=== PATIENT | male | born 1965 | race Caucasian/White ===

== ENCOUNTER 2017-07-17 09:55 | Outpatient (RCR) | payer BC, SELFPAY ==
--- NOTE | 2017-07-17 11:11 | HP.OTEVAL_ITS ---
Patient's Visit Information LYNDSEY FERRER is a 52 year old M, referred to Occupational Therapy by Robi Connolly MD, with a diagnosis of left IF sprain of metacarpophalangeal joint. Date of Evaluation: 07/17/17 Occupational Therapist: Francheska Hidalgo, BRENDANR/Lamar, CHT - Subjective Subjective: pt states in the end of April while golfing he hurt his left IF with his glof swing -pt states he again injured it in mid May. He attempted to use a store bought brace for it- and has stopped using the brace but contines to have pain. PT states pain is with use of bilatera hand tasks ie- tying shoes, pulling pants on etc. - Pain left IF 1 Pain Intensity Range: 0, 1, 5 - ROM ROM Comments: pt demo ROM WNL of left IF - Strength Lateral Pinch: right 16# left 2# Tripod Pinch: right 12# left unable Strength Comments: pt demo pain with lateral end range of motion at MCP of IF. and pain eith resistive pinch- - Sensation Sensation Comments: denies - Hand/Wrist Evaluation Total Score of Pain & Functional Sections: 62 - Goals Goal:: pt will demo a increase in lateral and tripod pinch strength by 5# to increase pts ind. with BADLS and IADLS by d/c Goal:: Pt will report no pain greater than 1/10 with use of bilateral hands with BADLS and IADLS by d/c - Rehabilitation General Assessment: pt reports pain with resistive use of left IF while in tripod or lateral pinch positions- pt denies change in sensation. pt demo with full functional ROM of left hand and IF. pain is limiting factor at this time and limits pts use of bilateral hand for BADLs and IADLS . Rehabilitation Potential: Good - Anticipated Interventions Anticipated Interventions: Strengthening, Modalities, Orthoses, Joint Protection /Energy Conservation, Ergonomic Education, Fine Motor Coord/Smith - Visit Plan Frequency: Monthly Duration: 2 Months General Plan: pt was instructed pt in HEP of tape of left lateral side of MCP of IF and tape to MF to prevent ulnar dev. of IF with use. pt was instructed if finger pain did not decrease pt will return to therapy. TEXT: Thank you for the opportunity to evaluate your patient. For Medicare and Medicare HMO plans, please review the plan of care and approve it. It will need to be FAXED BACK to us at [phone] for Medicare purposes. Please let me know if there are questions or concerns regarding this plan of care. Physician Signature: Date:
--- NOTE | 2017-10-14 15:36 | HP.OTDCNRP_ITS ---
HP - Discharge Summary - Patient Information LYNDSEY FERRER was seen in my office for initial evaluation on 07/17/17. The following Plan of Care was established for this patient: Initial Frequency: Monthly Initial Duration: 2 Months - Anticipated Interventions Anticipated Interventions: Strengthening, Modalities, Orthoses, Joint Protection /Energy Conservation, Ergonomic Education, Fine Motor Coord/Smith This patient was last seen in our office 07/17/17. Pertinent comments regarding their Occupational therapy will appear below: Pt has not returned following OT eval- due to time laps pt D/C from OT services. At this point I will be discontinuing this patient from occupational therapy. I would be happy to see this patient again in the future if found appropriate by the physician. Thank you! Francheska Hidalgo, OTR/L, CHT
== END 2017-07-17 19:00 | disposition home or self-care (01) ==
LOC: OT 09:55
PROVIDERS: Family Provider Nurse Practitioner Primary Care; PCP Nurse Practitioner Primary Care; Visit Provider Specialist
DX: S63.651D Sprain of metacarpophalangeal joint of left index finger, subsequent encounter (principal)
CPT/HCPCS: 97166